=== PATIENT | male | born 1965 | race Caucasian/White ===

== ENCOUNTER 2021-04-22 06:09 | Day surgery (SDC) | payer BC, SELFPAY ==
[~2021-04-22] VITALS: Ht 190.5 cm; Wt 86.2 kg
[2021-04-22] MEDS ORDERED: ACETAMINOPHEN I.V. 1000 MG 100 ML IV ONE (07:33)
[2021-04-22] MEDS ORDERED: LIDOCAINE 2%, 20 ML MDV INJ ONE (07:37)
[2021-04-22] MEDS ORDERED: ROCURONIUM BROMIDE 10 MG/ML (ZEMURON) IV ONE (07:37)
[2021-04-22] MEDS ORDERED: PROPOFOL 200MG/ 20ML VIAL (DIPRIVAN) IV ONE (07:37)
[2021-04-22] MEDS ORDERED: LIDOCAINE/EPI 1% 1:100000 20 ML VIAL INJ ONE (07:37)
[2021-04-22] MEDS ORDERED: DESFLURANE 15 MIN GAS INH ONE (07:37)
[2021-04-22] MEDS ORDERED: fentaNYL CITRATE 250 MCG/5 ML AMP IV ONE (07:37)
[2021-04-22] MEDS ORDERED: ONDANSETRON HCL 4 MG/2 ML VIAL IVP ONE (07:37)
[2021-04-22] MEDS ORDERED: MIDAZOLAM HCL 5 MG/5 ML VIAL IVP ONE (07:37)
[2021-04-22] MEDS ORDERED: LR 1,000 ML IV.SOLN IV ONE (07:37)
[2021-04-22] MEDS ORDERED: DEXAMETHASONE SOD PHOSPHATE 4 MG/ML VIAL IVP ONE (07:37)
[2021-04-22] MEDS ORDERED: SUGAMMADEX SODIUM 200 MG/2 ML VIAL IV ONE (07:37)
[2021-04-22] MEDS ORDERED: METOCLOPRAMIDE HCL 10 MG/2 ML VIAL IVP PRN (08:30)
[2021-04-22] MEDS ORDERED: hydrALAZINE HCL 20 MG/ML VIAL IVP PRN (08:30)
[2021-04-22] MEDS ORDERED: ONDANSETRON HCL 4 MG/2 ML VIAL IVP PRN (08:30)
[2021-04-22] MEDS ORDERED: LR 1,000 ML IV SCH (08:30)
[2021-04-22] MEDS ORDERED: MEPERIDINE HCL/PF 25 MG/ML DISP.SYRIN IVP PRN (08:30)
[2021-04-22] MEDS ORDERED: MIDAZOLAM HCL 2 MG/2 ML VIAL (VERSED) IVP PRN (08:30)
[2021-04-22] MEDS ORDERED: HYDROmorphone 1 MG/ML INJ. CARTRIDGE IVP PRN ×2 (08:30)
[2021-04-22] MEDS ORDERED: LABETALOL 100 MG/ 20ML VIAL IVP PRN (08:30)
[2021-04-22] MEDS ORDERED: ONDANSETRON HCL 4 MG/2 ML VIAL ONE (11:17)
[2021-04-22 11:49] VITALS: BP_SYST 109
[2021-04-22] MEDS ORDERED: HYDROcodone/ACETAMIN 5-325 MG TAB (NORCO/ VICODIN) PO ONE (12:00)
[2021-04-22] MEDS ORDERED: HYDROcodone/ACETAMIN 10-325 MG TAB ONE (12:01)
== END 2021-04-22 13:01 | disposition home or self-care (01) ==
LOC: SDS 06:09 → SMU 06:12 → SDS 13:01
PROVIDERS: ATTEND Otolaryngology
DX: D38.5 Neoplasm of uncertain behavior of other respiratory organs (principal); J33.9 Nasal polyp, unspecified; J30.1 Allergic rhinitis due to pollen; J34.89 Other specified disorders of nose and nasal sinuses; H40.813 Glaucoma with increased episcleral venous pressure, bilateral; M54.5 Low back pain; Z79.899 Other long term (current) drug therapy; Z20.822 Contact with and (suspected) exposure to COVID-19
CPT/HCPCS: 31255; 31296; 88305; 88311; A4649; C1726; C9399; J0131; J1100; J2001; J2250; J2405; J2704; J3010; J7120; U0003